=== PATIENT | male | born 1995 | race Caucasian/White ===

== ENCOUNTER 2017-10-06 23:05 | Observation (INO) | payer BC ==
[2017-10-07] MEDS ORDERED: Sodium Chloride 0.9% 10 ML Syringe FLUSH PRN (00:02)
[2017-10-07] MEDS ORDERED: Sodium Chloride 0.9% 1,000 ML IV SCH (00:15)
[2017-10-07] MEDS ORDERED: diphenhydrAMINE 50 MG/ML SDV IVPUSH ONE (00:18)
--- NOTE | 2017-10-07 02:08 | EDM.PDOC ---
ED HPI GENERAL MEDICAL PROBLEM - General Chief Complaint: General Stated Complaint: MUSCLE SPASMS Time Seen by Provider: 10/06/17 23:59 Source of Information: Reports: Patient, Family (Grandmother and reji), RN Notes Reviewed, Other (Records from [facility]) History Limitations: Reports: No Limitations - History of Present Illness INITIAL COMMENTS - FREE TEXT/NARRATIVE: Brought in by his grandmother and with his reji Chief complaint Back and neck muscle spasms History of present illness 22-year-old male came in with onset of spasms in his back and muscle making it difficult for him to walk and move since this evening. He was final day and did eat a normal amount. However he was hospitalized 2 days ago overnight at [facility]. He had consumed excess alcohol and was also uttering suicidal threats. At some point during his admission he received 10 mg of haloperidol probably by mouth, from the records I have. This was given because he was quite agitated while he was there. Discharge the next morning October 06. Urine drug screen done at [facility] was negative for any significant ingestion. He also did cut himself on the left wrist 2 days ago which was new for him. Not suicidal at present. No fever chills No recent illness He is sweating currently Back Pain Score (Numeric/FACES): 6 - Related Data Allergies Allergy/AdvReac Type Severity Reaction Status Date / Time haloperidol [From Haldol] Allergy Severe Other Verified 10/07/17 03:36 Home Meds: Home Meds NK [No Known Home Meds] 09/10/14 [History] Past Medical History - Past Health History Medical/Surgical History: Denies Medical/Surgical History Psychiatric History: Reports: ADD, ADHD - Infectious Disease History Infectious Disease History: Reports: Chicken Pox Social & Family History - Tobacco Use Smoking Status *Q: Never Smoker - Caffeine Use Caffeine Use: Reports: None - Recreational Drug Use Recreational Drug Use: No ED ROS GENERAL - Review of Systems Review Of Systems: See Below Constitutional: Reports: Malaise, Diaphoresis. Denies: Fever, Chills HEENT: Reports: No Symptoms Respiratory: Reports: No Symptoms Cardiovascular: Reports: No Symptoms GI/Abdominal: Reports: No Symptoms : Reports: No Symptoms Musculoskeletal: Reports: Neck Pain, Back Pain, Other (Muscle spasms) Skin: Reports: No Symptoms Neurological: Reports: No Symptoms Psychiatric: Reports: Other (Recent agitation/suicidal threats) Hematologic/Lymphatic: Reports: No Symptoms Immunologic: Reports: No Symptoms ED EXAM, GENERAL - Physical Exam Exam: See Below Exam Limited By: No Limitations General Appearance: Alert, Moderate Distress, Other (Restless anxious, afebrile , tachycardic, tachypneic, unable to get blood pressure because of tremors and restlessness) Eye Exam: Bilateral Eye: EOMI, Normal Inspection Ears: Normal External Exam Nose: Normal Inspection (His pressure is a lot), Normal Mucosa Throat/Mouth: Normal Inspection, Normal Oropharynx Respiratory/Chest: No Respiratory Distress, Lungs Clear, No Accessory Muscle Use (Almost immediately), Chest Non-Tender (Because of elevated) Cardiovascular: Regular Rate, Rhythm, No Murmur, Tachycardia GI/Abdominal: Normal Bowel Sounds, Soft, Non-Tender, No Distention Back Exam: Normal Inspection, Muscle Spasm, Paraspinal Tenderness Extremities: Normal Inspection Neurological: Alert, Oriented, No Motor/Sensory Deficits Psychiatric: Flat Affect Skin Exam: Warm, Dry, Intact, Normal Color, No Rash Course - Vital Signs Last Recorded V/S: Last Vital Signs Temp 36.8 C 10/07/17 03:43 Pulse 72 10/07/17 03:43 Resp 16 10/07/17 03:43 BP 138/73 10/07/17 03:43 Pulse Ox 98 10/07/17 03:43 - Orders/Labs/Meds Orders: Active Orders 24 hr Category Date Time Status Peripheral IV Care [RC] . DIRECTED Care 10/07/17 00:02 Active Consult to Physician [CONS] Urgent Cons 10/07/17 02:02 Ordered Sodium Chloride 0.9% [Normal Saline] 1,000 ml Med 10/07/17 00:15 Active IV ASDIRECTED Sodium Chloride 0.9% [Saline Flush] Med 10/07/17 00:02 Active 10 ml FLUSH ASDIRECTED PRN Peripheral IV Insertion Adult [OM.PC] Routine Oth 10/07/17 00:01 Ordered Medication Orders Acetaminophen (Tylenol) 650 mg PO Q4H PRN PRN Reason: Pain (Mild 1-3)/fever Diphenhydramine HCl (Benadryl) 50 mg IVPUSH Q4H PRN PRN Reason: dystonia Sodium Chloride (Normal Saline) 1,000 mls @ 250 mls/hr IV ASDIRECTED CHRIS Last Admin: 10/07/17 00:38 Dose: 250 mls/hr Ibuprofen (Motrin) 600 mg PO Q6H PRN PRN Reason: Pain/Fever Ondansetron HCl (Zofran Odt) 4 mg PO Q6H PRN PRN Reason: Nausea able to take PO Sodium Chloride (Saline Flush) 10 ml FLUSH ASDIRECTED PRN PRN Reason: Keep Vein Open Last Admin: 10/07/17 00:38 Dose: 10 ml Labs: Laboratory Tests 10/07/17 10/07/17 10/07/17 Range/Units 00:10 00:10 00:10 WBC 11.4 H (4.5-11.0) K/uL RBC 5.53 (4.30-5.90) M/uL Hgb 16.7 H (12.0-15.0) g/dL Hct 47.1 (40.0-54.0) % MCV 85 (80-98) fL MCH 30 (27-31) pg MCHC 36 (32-36) % Plt Count 345 (150-400) K/uL ABG Hemoglobin (13.5-18.0) g/dL ABG Oxyhemoglobin % ABG Carboxyhemoglobin (0.0-1.6) % ABG Methemoglobin % VBG pH (7.350-7.450) VBG pCO2 mm/Hg VBG pO2 mm/Hg VBG HCO3 mmol/L VBG Total CO2 mmol/L VBG O2 Saturation VBG O2 Content %vol VBG Base Excess mm/L O2 Delivery Device Sodium 141 (140-148) mmol/L Potassium 3.8 (3.6-5.2) mmol/L Chloride 102 (100-108) mmol/L Carbon Dioxide 25 (21-32) mmol/L Anion Gap 14.5 H (5.0-14.0) mmol/L BUN 11 (7-18) mg/dL Creatinine 1.2 (0.8-1.3) mg/dL Est Cr Clr Drug Dosing 102.84 mL/min Estimated GFR (MDRD) > 60 (>60) Glucose 113 H (74-106) mg/dL Lactic Acid 3.1 H (0.4-2.0) mmol/L Calcium 9.4 (8.5-10.1) mg/dL Total Bilirubin 0.5 (0.2-1.0) mg/dL AST 53 H (15-37) U/L ALT 73 (12-78) U/L Alkaline Phosphatase 102 (46-116) U/L Creatine Kinase (39-308) U/L Total Protein 8.1 (6.4-8.2) g/dL Albumin 4.3 (3.4-5.0) g/dL Globulin 3.8 H (2.3-3.5) g/dL Albumin/Globulin Ratio 1.1 L (1.2-2.2) Lipase 77 (73-393) U/L Urine Color Urine Appearance Urine pH (4.5-8.0) Ur Specific [place] (1.008-1.030) Urine Protein (NEGATIVE) mg/dL Urine Glucose (UA) (NEGATIVE) mg/dL Urine Ketones (NEGATIVE) mg/dL Urine Occult Blood (NEGATIVE) Urine Nitrite (NEGAITVE) Urine Bilirubin (NEGATIVE) Urine Urobilinogen (NORMAL) mg/dL Ur Leukocyte Esterase (NEGATIVE) Urine RBC (0-5) Urine WBC (0-5) Ur Epithelial Cells Amorphous Sediment Urine Bacteria Urine Mucus Ethyl Alcohol mg/dL 10/07/17 10/07/17 10/07/17 Range/Units 00:10 00:10 00:10 WBC (4.5-11.0) K/uL RBC (4.30-5.90) M/uL Hgb (12.0-15.0) g/dL Hct (40.0-54.0) % MCV (80-98) fL MCH (27-31) pg MCHC (32-36) % Plt Count (150-400) K/uL ABG Hemoglobin 17.2 (13.5-18.0) g/dL ABG Oxyhemoglobin 57.3 % ABG Carboxyhemoglobin 1.1 (0.0-1.6) % ABG Methemoglobin 0.7 % VBG pH 7.386 (7.350-7.450) VBG pCO2 43.8 mm/Hg VBG pO2 31.9 mm/Hg VBG HCO3 25.7 mmol/L VBG Total CO2 22.1 mmol/L VBG O2 Saturation 58.4 VBG O2 Content 13.8 %vol VBG Base Excess 0.8 mm/L O2 Delivery Device Room air Sodium (140-148) mmol/L Potassium (3.6-5.2) mmol/L Chloride (100-108) mmol/L Carbon Dioxide (21-32) mmol/L Anion Gap (5.0-14.0) mmol/L BUN (7-18) mg/dL Creatinine (0.8-1.3) mg/dL Est Cr Clr Drug Dosing mL/min Estimated GFR (MDRD) (>60) Glucose (74-106) mg/dL Lactic Acid (0.4-2.0) mmol/L Calcium (8.5-10.1) mg/dL Total Bilirubin (0.2-1.0) mg/dL AST (15-37) U/L ALT (12-78) U/L Alkaline Phosphatase (46-116) U/L Creatine Kinase 1538 H (39-308) U/L Total Protein (6.4-8.2) g/dL Albumin (3.4-5.0) g/dL Globulin (2.3-3.5) g/dL Albumin/Globulin Ratio (1.2-2.2) Lipase (73-393) U/L Urine Color Urine Appearance Urine pH (4.5-8.0) Ur Specific [place] (1.008-1.030) Urine Protein (NEGATIVE) mg/dL Urine Glucose (UA) (NEGATIVE) mg/dL Urine Ketones (NEGATIVE) mg/dL Urine Occult Blood (NEGATIVE) Urine Nitrite (NEGAITVE) Urine Bilirubin (NEGATIVE) Urine Urobilinogen (NORMAL) mg/dL Ur Leukocyte Esterase (NEGATIVE) Urine RBC (0-5) Urine WBC (0-5) Ur Epithelial Cells Amorphous Sediment Urine Bacteria Urine Mucus Ethyl Alcohol < 3 mg/dL 10/07/17 Range/Units 01:35 WBC (4.5-11.0) K/uL RBC (4.30-5.90) M/uL Hgb (12.0-15.0) g/dL Hct (40.0-54.0) % MCV (80-98) fL MCH (27-31) pg MCHC (32-36) % Plt Count (150-400) K/uL ABG Hemoglobin (13.5-18.0) g/dL ABG Oxyhemoglobin % ABG Carboxyhemoglobin (0.0-1.6) % ABG Methemoglobin % VBG pH (7.350-7.450) VBG pCO2 mm/Hg VBG pO2 mm/Hg VBG HCO3 mmol/L VBG Total CO2 mmol/L VBG O2 Saturation VBG O2 Content %vol VBG Base Excess mm/L O2 Delivery Device Sodium (140-148) mmol/L Potassium (3.6-5.2) mmol/L Chloride (100-108) mmol/L Carbon Dioxide (21-32) mmol/L Anion Gap (5.0-14.0) mmol/L BUN (7-18) mg/dL Creatinine (0.8-1.3) mg/dL Est Cr Clr Drug Dosing mL/min Estimated GFR (MDRD) (>60) Glucose (74-106) mg/dL Lactic Acid (0.4-2.0) mmol/L Calcium (8.5-10.1) mg/dL Total Bilirubin (0.2-1.0) mg/dL AST (15-37) U/L ALT (12-78) U/L Alkaline Phosphatase (46-116) U/L Creatine Kinase (39-308) U/L Total Protein (6.4-8.2) g/dL Albumin (3.4-5.0) g/dL Globulin (2.3-3.5) g/dL Albumin/Globulin Ratio (1.2-2.2) Lipase (73-393) U/L Urine Color Yellow Urine Appearance Clear Urine pH 6.5 (4.5-8.0) Ur Specific [place] 1.015 (1.008-1.030) Urine Protein Negative (NEGATIVE) mg/dL Urine Glucose (UA) Normal (NEGATIVE) mg/dL Urine Ketones Negative (NEGATIVE) mg/dL Urine Occult Blood Negative (NEGATIVE) Urine Nitrite Negative (NEGAITVE) Urine Bilirubin Negative (NEGATIVE) Urine Urobilinogen Normal (NORMAL) mg/dL Ur Leukocyte Esterase Negative (NEGATIVE) Urine RBC 0-5 (0-5) Urine WBC 0-5 (0-5) Ur Epithelial Cells Rare Amorphous Sediment Not seen Urine Bacteria Few Urine Mucus Not seen Ethyl Alcohol mg/dL Meds: Medications Generic Name Dose Route Start Last Admin Trade Name Freq PRN Reason Stop Dose Admin Acetaminophen 650 mg 10/07/17 03:17 Tylenol PO Q4H PRN Pain (Mild 1-3)/fever Diphenhydramine HCl 50 mg 10/07/17 03:17 Benadryl IVPUSH Q4H PRN dystonia Sodium Chloride 1,000 mls @ 250 mls/hr 10/07/17 00:15 10/07/17 00:38 Normal Saline IV 250 mls/hr ASDIRECTED CHRIS Administration Ibuprofen 600 mg 10/07/17 03:17 Motrin PO Q6H PRN Pain/Fever Ondansetron HCl 4 mg 10/07/17 03:17 Zofran Odt PO Q6H PRN Nausea able to take PO Sodium Chloride 10 ml 10/07/17 00:02 10/07/17 00:38 Saline Flush FLUSH 10 ml ASDIRECTED PRN Administration Keep Vein Open Discontinued Medications Generic Name Dose Route Start Last Admin Trade Name Freq PRN Reason Stop Dose Admin Diphenhydramine HCl 50 mg 10/07/17 00:18 10/07/17 00:38 Benadryl IVPUSH 10/07/17 00:19 50 mg ONETIME ONE Administration - Re-Assessments/Exams Free Text/Narrative Re-Assessment/Exam: 10/07/17 02:09 22-year-old male with acute muscle spasms. Recent haloperidol dosing when hospitalized at [facility] Differential diagnosis includes muscle spasm in the back, dystonic reaction from the medication given at [facility], infection, electrolyte abnormalities. Plan Intravenous saline, Benadryl 50 mg for possible dystonic reaction, labs ordered Mild elevation of white count, electrolytes normal, elevated CPK at 1538 Urinalysis normal Elevated lactic acid at 3.1, increased anion gap, remaining electrolytes unremarkable and liver enzymes normal except for mild elevation in AST Current blood pressure 146 systolic In view of his elevated CPK and lactic acid, recommend overnight admission for intravenous fluids and for further treatment of his muscle spasms of the recurrent Departure - Departure Time of Disposition: 02:57 Disposition: Refer to Observation Condition: Good Clinical Impression: Dystonic drug reaction, Elevated CK, Lactic acid acidosis - Discharge Information - My Orders Last 24 Hours: My Active Orders 10/07/17 00:01 Peripheral IV Insertion Adult [OM.PC] Routine 10/07/17 00:02 Peripheral IV Care [RC] . DIRECTED Sodium Chloride 0.9% [Saline Flush] 10 ml FLUSH ASDIRECTED PRN 10/07/17 00:15 Sodium Chloride 0.9% [Normal Saline] 1,000 ml IV ASDIRECTED 10/07/17 02:02 Consult to Physician [CONS] Urgent - Assessment/Plan Last 24 Hours: My Active Orders 10/07/17 00:01 Peripheral IV Insertion Adult [OM.PC] Routine 10/07/17 00:02 Peripheral IV Care [RC] . DIRECTED Sodium Chloride 0.9% [Saline Flush] 10 ml FLUSH ASDIRECTED PRN 10/07/17 00:15 Sodium Chloride 0.9% [Normal Saline] 1,000 ml IV ASDIRECTED 10/07/17 02:02 Consult to Physician [CONS] Urgent
--- NOTE | 2017-10-07 02:49 | PCM.HP ---
H&P History of Present Illness - General Date of Service: 10/07/17 Admit Problem/Dx: Admission Diagnosis/Problem Admission Diagnosis/Problem Dystonia Source of Information: Patient, Family, Provider History Limitations: Reports: No Limitations - History of Present Illness Initial Comments - Free Text/Narative: Jean presents to the ER tonight with diffuse muscle spasms that he was not able to control. They started about 4 hours before ER presentation. The spasms involved essentially all of his muscles but seem to be most pronounced in the back and proximal upper and lower extremities. The symptoms progressed over the course of several hours and included severe sharp pain in all of the affected muscles. Moving against the spasm made the pain worse. He was able to get some relief in a curled up position. He did not take anything to make the pain better at home. He had a normal day today and a normally. He was diaphoretic this evening. It is noted that he received a 10 mg dose of Haldol last night for agitation while he was at the [facility] unit. He does not report shortness of breath, abdominal pain, nausea. Workup in the emergency room revealed apparent dystonia which resolved with Benadryl. He has no elevated lactic acid and CPK and will be admitted for additional hydration and observation. Back Pain Score (Numeric/FACES): 6 - Related Data Allergies/Adverse Reactions: Allergies Allergy/AdvReac Type Severity Reaction Status Date / Time No Known Allergies Allergy Verified 10/06/17 23:54 Home Medications: Home Meds NK [No Known Home Meds] 09/10/14 [History] Past Medical History - Past Health History Medical/Surgical History: Denies Medical/Surgical History Psychiatric History: Reports: ADD, ADHD - Infectious Disease History Infectious Disease History: Reports: Chicken Pox Social & Family History - Family History Other Family History: No family history of dystonic reaction - Tobacco Use Smoking Status *Q: Never Smoker - Caffeine Use Caffeine Use: Reports: None - Recreational Drug Use Recreational Drug Use: No H&P Review of Systems - Review of Systems: Review Of Systems: See Below Free Text/Narrative: A complete 12 point review of systems was obtained. Pertinent positives and negatives are noted in the history of present illness. All other systems were reviewed and were negative except as noted. Exam - Exam Exam: See Below - Vital Signs Vital Signs: Last Vital Signs Temp 36.3 C 10/06/17 23:55 Pulse 138 H 10/06/17 23:55 Resp 28 H 10/06/17 23:55 BP 146/86 H 10/07/17 01:45 Pulse Ox 97 10/06/17 23:55 Weight: 105.7 kg - Exam Quality Assessment: No: Supplemental Oxygen General: Alert, Oriented, Cooperative. No: Mild Distress HEENT: Conjunctiva Clear, Mucosa Moist & [place]. No: Scleral Icterus Neck: Supple, Trachea Midline. No: Lymphadenopathy, Thyromegaly Lungs: Clear to Auscultation, Normal Respiratory Effort Cardiovascular: Regular Rate, Regular Rhythm. No: Systolic Murmur GI/Abdominal Exam: Normal Bowel Sounds, Soft, Non-Tender, No Distention, No Mass Extremities: No Pedal Edema. No: Increased Warmth Peripheral Pulses: 2+: Dorsalis Pedis (L), Dorsalis Pedis (R) Skin: Warm, Dry, Intact Neuro Extensive - Mental Status: Alert, Oriented x3, Nl Response to Commands Neuro Extensive - Motor, Sensory, Reflexes: CN II-XII Intact. No: Dysarthria, Abnormal Motor, Tremor Psychiatric: Alert, Normal Affect - Patient Data Lab Results Last 24 hrs: Laboratory Results - last 24 hr 10/07/17 10/07/17 10/07/17 Range/Units 00:10 00:10 00:10 WBC 11.4 H (4.5-11.0) K/uL RBC 5.53 (4.30-5.90) M/uL Hgb 16.7 H (12.0-15.0) g/dL Hct 47.1 (40.0-54.0) % MCV 85 (80-98) fL MCH 30 (27-31) pg MCHC 36 (32-36) % Plt Count 345 (150-400) K/uL ABG Hemoglobin (13.5-18.0) g/dL ABG Oxyhemoglobin % ABG Carboxyhemoglobin (0.0-1.6) % ABG Methemoglobin % VBG pH (7.350-7.450) VBG pCO2 mm/Hg VBG pO2 mm/Hg VBG HCO3 mmol/L VBG Total CO2 mmol/L VBG O2 Saturation VBG O2 Content %vol VBG Base Excess mm/L O2 Delivery Device Sodium 141 (140-148) mmol/L Potassium 3.8 (3.6-5.2) mmol/L Chloride 102 (100-108) mmol/L Carbon Dioxide 25 (21-32) mmol/L Anion Gap 14.5 H (5.0-14.0) mmol/L BUN 11 (7-18) mg/dL Creatinine 1.2 (0.8-1.3) mg/dL Est Cr Clr Drug Dosing 102.84 mL/min Estimated GFR (MDRD) > 60 (>60) Glucose 113 H (74-106) mg/dL Lactic Acid 3.1 H (0.4-2.0) mmol/L Calcium 9.4 (8.5-10.1) mg/dL Total Bilirubin 0.5 (0.2-1.0) mg/dL AST 53 H (15-37) U/L ALT 73 (12-78) U/L Alkaline Phosphatase 102 (46-116) U/L Creatine Kinase (39-308) U/L Total Protein 8.1 (6.4-8.2) g/dL Albumin 4.3 (3.4-5.0) g/dL Globulin 3.8 H (2.3-3.5) g/dL Albumin/Globulin Ratio 1.1 L (1.2-2.2) Lipase 77 (73-393) U/L Urine Color Urine Appearance Urine pH (4.5-8.0) Ur Specific [place] (1.008-1.030) Urine Protein (NEGATIVE) mg/dL Urine Glucose (UA) (NEGATIVE) mg/dL Urine Ketones (NEGATIVE) mg/dL Urine Occult Blood (NEGATIVE) Urine Nitrite (NEGAITVE) Urine Bilirubin (NEGATIVE) Urine Urobilinogen (NORMAL) mg/dL Ur Leukocyte Esterase (NEGATIVE) Urine RBC (0-5) Urine WBC (0-5) Ur Epithelial Cells Amorphous Sediment Urine Bacteria Urine Mucus Ethyl Alcohol mg/dL 10/07/17 10/07/17 10/07/17 Range/Units 00:10 00:10 00:10 WBC (4.5-11.0) K/uL RBC (4.30-5.90) M/uL Hgb (12.0-15.0) g/dL Hct (40.0-54.0) % MCV (80-98) fL MCH (27-31) pg MCHC (32-36) % Plt Count (150-400) K/uL ABG Hemoglobin 17.2 (13.5-18.0) g/dL ABG Oxyhemoglobin 57.3 % ABG Carboxyhemoglobin 1.1 (0.0-1.6) % ABG Methemoglobin 0.7 % VBG pH 7.386 (7.350-7.450) VBG pCO2 43.8 mm/Hg VBG pO2 31.9 mm/Hg VBG HCO3 25.7 mmol/L VBG Total CO2 22.1 mmol/L VBG O2 Saturation 58.4 VBG O2 Content 13.8 %vol VBG Base Excess 0.8 mm/L O2 Delivery Device Room air Sodium (140-148) mmol/L Potassium (3.6-5.2) mmol/L Chloride (100-108) mmol/L Carbon Dioxide (21-32) mmol/L Anion Gap (5.0-14.0) mmol/L BUN (7-18) mg/dL Creatinine (0.8-1.3) mg/dL Est Cr Clr Drug Dosing mL/min Estimated GFR (MDRD) (>60) Glucose (74-106) mg/dL Lactic Acid (0.4-2.0) mmol/L Calcium (8.5-10.1) mg/dL Total Bilirubin (0.2-1.0) mg/dL AST (15-37) U/L ALT (12-78) U/L Alkaline Phosphatase (46-116) U/L Creatine Kinase 1538 H (39-308) U/L Total Protein (6.4-8.2) g/dL Albumin (3.4-5.0) g/dL Globulin (2.3-3.5) g/dL Albumin/Globulin Ratio (1.2-2.2) Lipase (73-393) U/L Urine Color Urine Appearance Urine pH (4.5-8.0) Ur Specific [place] (1.008-1.030) Urine Protein (NEGATIVE) mg/dL Urine Glucose (UA) (NEGATIVE) mg/dL Urine Ketones (NEGATIVE) mg/dL Urine Occult Blood (NEGATIVE) Urine Nitrite (NEGAITVE) Urine Bilirubin (NEGATIVE) Urine Urobilinogen (NORMAL) mg/dL Ur Leukocyte Esterase (NEGATIVE) Urine RBC (0-5) Urine WBC (0-5) Ur Epithelial Cells Amorphous Sediment Urine Bacteria Urine Mucus Ethyl Alcohol < 3 mg/dL 10/07/17 Range/Units 01:35 WBC (4.5-11.0) K/uL RBC (4.30-5.90) M/uL Hgb (12.0-15.0) g/dL Hct (40.0-54.0) % MCV (80-98) fL MCH (27-31) pg MCHC (32-36) % Plt Count (150-400) K/uL ABG Hemoglobin (13.5-18.0) g/dL ABG Oxyhemoglobin % ABG Carboxyhemoglobin (0.0-1.6) % ABG Methemoglobin % VBG pH (7.350-7.450) VBG pCO2 mm/Hg VBG pO2 mm/Hg VBG HCO3 mmol/L VBG Total CO2 mmol/L VBG O2 Saturation VBG O2 Content %vol VBG Base Excess mm/L O2 Delivery Device Sodium (140-148) mmol/L Potassium (3.6-5.2) mmol/L Chloride (100-108) mmol/L Carbon Dioxide (21-32) mmol/L Anion Gap (5.0-14.0) mmol/L BUN (7-18) mg/dL Creatinine (0.8-1.3) mg/dL Est Cr Clr Drug Dosing mL/min Estimated GFR (MDRD) (>60) Glucose (74-106) mg/dL Lactic Acid (0.4-2.0) mmol/L Calcium (8.5-10.1) mg/dL Total Bilirubin (0.2-1.0) mg/dL AST (15-37) U/L ALT (12-78) U/L Alkaline Phosphatase (46-116) U/L Creatine Kinase (39-308) U/L Total Protein (6.4-8.2) g/dL Albumin (3.4-5.0) g/dL Globulin (2.3-3.5) g/dL Albumin/Globulin Ratio (1.2-2.2) Lipase (73-393) U/L Urine Color Yellow Urine Appearance Clear Urine pH 6.5 (4.5-8.0) Ur Specific [place] 1.015 (1.008-1.030) Urine Protein Negative (NEGATIVE) mg/dL Urine Glucose (UA) Normal (NEGATIVE) mg/dL Urine Ketones Negative (NEGATIVE) mg/dL Urine Occult Blood Negative (NEGATIVE) Urine Nitrite Negative (NEGAITVE) Urine Bilirubin Negative (NEGATIVE) Urine Urobilinogen Normal (NORMAL) mg/dL Ur Leukocyte Esterase Negative (NEGATIVE) Urine RBC 0-5 (0-5) Urine WBC 0-5 (0-5) Ur Epithelial Cells Rare Amorphous Sediment Not seen Urine Bacteria Few Urine Mucus Not seen Ethyl Alcohol mg/dL Result Diagrams: 10/07/17 00:10 10/07/17 00:10 *Q Meaningful Use (ADM) - VTE Risk Assess *Q Each Risk Factor Represents 1 Point: None Total Score 1 Point Risk Factors: 0 Each Risk Factor Represents 2 Points: None Total Score 2 Point Risk Factors: 0 Each Risk Factor Represents 3 Points: None Total Score 3 Point Risk Factors: 0 Each Risk Factor Represents 5 Points: None Total Score 5 Point Risk Factors: 0 Venous Thromboembolism Risk Factor Score *Q: 0 - Problem List (1) Dystonia SNOMED Code(s): 72013148 ICD Code: G24.9 - DYSTONIA, UNSPECIFIED Status: Acute Current Visit: Yes Problem List Initiated/Reviewed/Updated: Yes Orders Last 24hrs: Active Orders 24 hr Category Date Time Status Patient Status Manage Transfer [TRANSFER] Routine ADT 10/07/17 02:42 Active Notify Provider Consults [RC] ASDIRECTED Care 10/07/17 02:02 Active Peripheral IV Care [RC] . DIRECTED Care 10/07/17 00:02 Active Consult to Physician [CONS] Urgent Cons 10/07/17 02:02 Ordered UA W/MICROSCOPIC [URIN] Stat Lab 10/07/17 01:35 Ordered Sodium Chloride 0.9% [Normal Saline] 1,000 ml Med 10/07/17 00:15 Active IV ASDIRECTED Sodium Chloride 0.9% [Saline Flush] Med 10/07/17 00:02 Active 10 ml FLUSH ASDIRECTED PRN Peripheral IV Insertion Adult [OM.PC] Routine Oth 10/07/17 00:01 Ordered Resuscitation Status Routine Resus Stat 10/07/17 02:43 Ordered Medication Orders Sodium Chloride (Normal Saline) 1,000 mls @ 250 mls/hr IV ASDIRECTED CHRIS Last Admin: 10/07/17 00:38 Dose: 250 mls/hr Sodium Chloride (Saline Flush) 10 ml FLUSH ASDIRECTED PRN PRN Reason: Keep Vein Open Last Admin: 10/07/17 00:38 Dose: 10 ml Assessment/Plan Comment:: ASSESSMENT AND PLAN - Dystonic reaction - probably secondary to Haldol administration last night. Associated with tachycardia, diaphoresis as well as elevated lactic acid and CPK. He has improved with administration of diphenhydramine. Tachycardia has resolved with IV fluids and diphenhydramine administration. -IV fluids -Repeat CPK and lactic acid -Diphenhydramine as needed if symptoms return Maintenance issues - - DVT prophylaxis - patient will be ambulatory - GI prophylaxis - not indicated - Nutrition - regular diet - [place] catheter - not indicated CODE STATUS - full code Admission justification - Patient will be referred observation status for hydration, observation and repeat laboratory testing Disposition - I would anticipate discharge to home later in the day Primary care physician - none Talib Padilla M.D.
[2017-10-07] MEDS ORDERED: Ondansetron 4 MG Tab.DIS PO PRN (03:17)
[2017-10-07] MEDS ORDERED: Acetaminophen 325 MG Tab PO PRN (03:17)
[2017-10-07] MEDS ORDERED: Ibuprofen 600 MG Tab PO PRN (03:17)
[2017-10-07] MEDS ORDERED: diphenhydrAMINE 50 MG/ML SDV IVPUSH PRN (03:17)
[2017-10-07 07:08] VITALS: BP 138/71
--- NOTE | 2017-10-07 10:11 | PCM.DCSUM1 ---
Discharge Summary - Hospital Course Brief History: Healthy 22-year-old male who presented with dystonic reaction about 24 hours after a dose of Haldol. He was admitted for hydration and repeat laboratory testing with elevated lactic acid and CPK. Diagnosis: Stroke: No - Discharge Data Discharge Date: 10/07/17 Discharge Disposition: Home, Self-Care 01 Condition: Good - Discharge Diagnosis/Problem(s) (1) Dystonia SNOMED Code(s): 69348539 ICD Code: G24.9 - DYSTONIA, UNSPECIFIED Status: Acute - Patient Summary/Data Consults: Consultations 10/07/17 02:02 Consult to Physician [CONS] Urgent Consulting Provider: Talib Padilla Call Completed to Consulting Physician: Yes Hospital Course: Jean presented to the emergency room last night with progressive muscle spasm involving most predominantly his trunk and proximal extremities. He was tachycardic and diaphoretic on arrival. There was some concern for dystonic reaction versus possibly neuroleptic malignant syndrome. Lactic acid and CPK were both elevated. The patient did receive a dose of diphenhydramine and his muscle spasm essentially resolved at that point. He was admitted to the hospital for hydration and repeat laboratory testing. Several hours after admission we rechecked his CPK and lactic acid. Lactic acid level was normal and CPK was improving but had not normalized. Patient felt well and did not have any sort of muscle spasm or myalgias. He felt well enough for discharge home and I believe he is safe at this time. He was advised to have financial handy just in case the symptoms started again. Haldol has been added to his allergy list. - Patient Instructions Diet: Regular Diet as Tolerated Activity: As Tolerated, Rest and Relax Today Driving: May Drive Today Showering/Bathing: May Shower Notify Provider of: Fever, Increased Pain, Nausea and/or Vomiting Other/Special Instructions: 1. You were in the hospital for observation after a dystonic reaction thought to be caused by Haldol. I have added this medication to your list of allergies and I would strongly recommend that you never take this medication or medications from that family again because of the potential for a severe and maybe even life-threatening reaction. Your symptoms have improved with a dose of diphenhydramine as well as some IV fluids. I would recommend that you drink plenty of fluids today. You should also rest and relax for today but may resume normal activity tomorrow. If you have the sensation that the muscle spasms are returning you could consider taking 50 mg of diphenhydramine (Benadryl). If you have persistent symptoms please return to the emergency room. - Discharge Plan Home Medications: Home Meds NK [No Known Home Meds] 09/10/14 [History] Patient Handouts: Dystonic Reaction - Discharge Summary/Plan Comment DC Time >30 min.: No - Patient Data Vitals - Most Recent: Last Vital Signs Temp 37.1 C 10/07/17 07:05 Pulse 68 10/07/17 07:05 Resp 18 10/07/17 07:05 BP 138/71 10/07/17 07:05 Pulse Ox 97 10/07/17 07:05 Weight - Most Recent: 105.7 kg I&O - Last 24 hours: Intake & Output 10/06/17 10/07/17 10/07/17 22:59 06:59 14:59 Intake Total 440 Balance 440 Lab Results - Last 24 hrs: Laboratory Results - last 24 hr 10/07/17 10/07/17 10/07/17 Range/Units 00:10 00:10 00:10 WBC 11.4 H (4.5-11.0) K/uL RBC 5.53 (4.30-5.90) M/uL Hgb 16.7 H (12.0-15.0) g/dL Hct 47.1 (40.0-54.0) % MCV 85 (80-98) fL MCH 30 (27-31) pg MCHC 36 (32-36) % Plt Count 345 (150-400) K/uL ABG Hemoglobin (13.5-18.0) g/dL ABG Oxyhemoglobin % ABG Carboxyhemoglobin (0.0-1.6) % ABG Methemoglobin % VBG pH (7.350-7.450) VBG pCO2 mm/Hg VBG pO2 mm/Hg VBG HCO3 mmol/L VBG Total CO2 mmol/L VBG O2 Saturation VBG O2 Content %vol VBG Base Excess mm/L O2 Delivery Device Sodium 141 (140-148) mmol/L Potassium 3.8 (3.6-5.2) mmol/L Chloride 102 (100-108) mmol/L Carbon Dioxide 25 (21-32) mmol/L Anion Gap 14.5 H (5.0-14.0) mmol/L BUN 11 (7-18) mg/dL Creatinine 1.2 (0.8-1.3) mg/dL Est Cr Clr Drug Dosing 102.84 mL/min Estimated GFR (MDRD) > 60 (>60) Glucose 113 H (74-106) mg/dL Lactic Acid 3.1 H (0.4-2.0) mmol/L Calcium 9.4 (8.5-10.1) mg/dL Total Bilirubin 0.5 (0.2-1.0) mg/dL AST 53 H (15-37) U/L ALT 73 (12-78) U/L Alkaline Phosphatase 102 (46-116) U/L Creatine Kinase (39-308) U/L Total Protein 8.1 (6.4-8.2) g/dL Albumin 4.3 (3.4-5.0) g/dL Globulin 3.8 H (2.3-3.5) g/dL Albumin/Globulin Ratio 1.1 L (1.2-2.2) Lipase 77 (73-393) U/L Urine Color Urine Appearance Urine pH (4.5-8.0) Ur Specific [place] (1.008-1.030) Urine Protein (NEGATIVE) mg/dL Urine Glucose (UA) (NEGATIVE) mg/dL Urine Ketones (NEGATIVE) mg/dL Urine Occult Blood (NEGATIVE) Urine Nitrite (NEGAITVE) Urine Bilirubin (NEGATIVE) Urine Urobilinogen (NORMAL) mg/dL Ur Leukocyte Esterase (NEGATIVE) Urine RBC (0-5) Urine WBC (0-5) Ur Epithelial Cells Amorphous Sediment Urine Bacteria Urine Mucus Ethyl Alcohol mg/dL 10/07/17 10/07/17 10/07/17 Range/Units 00:10 00:10 00:10 WBC (4.5-11.0) K/uL RBC (4.30-5.90) M/uL Hgb (12.0-15.0) g/dL Hct (40.0-54.0) % MCV (80-98) fL MCH (27-31) pg MCHC (32-36) % Plt Count (150-400) K/uL ABG Hemoglobin 17.2 (13.5-18.0) g/dL ABG Oxyhemoglobin 57.3 % ABG Carboxyhemoglobin 1.1 (0.0-1.6) % ABG Methemoglobin 0.7 % VBG pH 7.386 (7.350-7.450) VBG pCO2 43.8 mm/Hg VBG pO2 31.9 mm/Hg VBG HCO3 25.7 mmol/L VBG Total CO2 22.1 mmol/L VBG O2 Saturation 58.4 VBG O2 Content 13.8 %vol VBG Base Excess 0.8 mm/L O2 Delivery Device Room air Sodium (140-148) mmol/L Potassium (3.6-5.2) mmol/L Chloride (100-108) mmol/L Carbon Dioxide (21-32) mmol/L Anion Gap (5.0-14.0) mmol/L BUN (7-18) mg/dL Creatinine (0.8-1.3) mg/dL Est Cr Clr Drug Dosing mL/min Estimated GFR (MDRD) (>60) Glucose (74-106) mg/dL Lactic Acid (0.4-2.0) mmol/L Calcium (8.5-10.1) mg/dL Total Bilirubin (0.2-1.0) mg/dL AST (15-37) U/L ALT (12-78) U/L Alkaline Phosphatase (46-116) U/L Creatine Kinase 1538 H (39-308) U/L Total Protein (6.4-8.2) g/dL Albumin (3.4-5.0) g/dL Globulin (2.3-3.5) g/dL Albumin/Globulin Ratio (1.2-2.2) Lipase (73-393) U/L Urine Color Urine Appearance Urine pH (4.5-8.0) Ur Specific [place] (1.008-1.030) Urine Protein (NEGATIVE) mg/dL Urine Glucose (UA) (NEGATIVE) mg/dL Urine Ketones (NEGATIVE) mg/dL Urine Occult Blood (NEGATIVE) Urine Nitrite (NEGAITVE) Urine Bilirubin (NEGATIVE) Urine Urobilinogen (NORMAL) mg/dL Ur Leukocyte Esterase (NEGATIVE) Urine RBC (0-5) Urine WBC (0-5) Ur Epithelial Cells Amorphous Sediment Urine Bacteria Urine Mucus Ethyl Alcohol < 3 mg/dL 10/07/17 10/07/17 10/07/17 Range/Units 01:35 06:45 06:45 WBC (4.5-11.0) K/uL RBC (4.30-5.90) M/uL Hgb (12.0-15.0) g/dL Hct (40.0-54.0) % MCV (80-98) fL MCH (27-31) pg MCHC (32-36) % Plt Count (150-400) K/uL ABG Hemoglobin (13.5-18.0) g/dL ABG Oxyhemoglobin % ABG Carboxyhemoglobin (0.0-1.6) % ABG Methemoglobin % VBG pH (7.350-7.450) VBG pCO2 mm/Hg VBG pO2 mm/Hg VBG HCO3 mmol/L VBG Total CO2 mmol/L VBG O2 Saturation VBG O2 Content %vol VBG Base Excess mm/L O2 Delivery Device Sodium (140-148) mmol/L Potassium (3.6-5.2) mmol/L Chloride (100-108) mmol/L Carbon Dioxide (21-32) mmol/L Anion Gap (5.0-14.0) mmol/L BUN (7-18) mg/dL Creatinine (0.8-1.3) mg/dL Est Cr Clr Drug Dosing mL/min Estimated GFR (MDRD) (>60) Glucose (74-106) mg/dL Lactic Acid 1.0 (0.4-2.0) mmol/L Calcium (8.5-10.1) mg/dL Total Bilirubin (0.2-1.0) mg/dL AST (15-37) U/L ALT (12-78) U/L Alkaline Phosphatase (46-116) U/L Creatine Kinase 1445 H (39-308) U/L Total Protein (6.4-8.2) g/dL Albumin (3.4-5.0) g/dL Globulin (2.3-3.5) g/dL Albumin/Globulin Ratio (1.2-2.2) Lipase (73-393) U/L Urine Color Yellow Urine Appearance Clear Urine pH 6.5 (4.5-8.0) Ur Specific [place] 1.015 (1.008-1.030) Urine Protein Negative (NEGATIVE) mg/dL Urine Glucose (UA) Normal (NEGATIVE) mg/dL Urine Ketones Negative (NEGATIVE) mg/dL Urine Occult Blood Negative (NEGATIVE) Urine Nitrite Negative (NEGAITVE) Urine Bilirubin Negative (NEGATIVE) Urine Urobilinogen Normal (NORMAL) mg/dL Ur Leukocyte Esterase Negative (NEGATIVE) Urine RBC 0-5 (0-5) Urine WBC 0-5 (0-5) Ur Epithelial Cells Rare Amorphous Sediment Not seen Urine Bacteria Few Urine Mucus Not seen Ethyl Alcohol mg/dL Med Orders - Current: Current Medications Acetaminophen (Tylenol) 650 mg PO Q4H PRN PRN Reason: Pain (Mild 1-3)/fever Diphenhydramine HCl (Benadryl) 50 mg IVPUSH Q4H PRN PRN Reason: dystonia Sodium Chloride (Normal Saline) 1,000 mls @ 250 mls/hr IV ASDIRECTED CHRIS Last Admin: 10/07/17 00:38 Dose: 250 mls/hr Ibuprofen (Motrin) 600 mg PO Q6H PRN PRN Reason: Pain/Fever Ondansetron HCl (Zofran Odt) 4 mg PO Q6H PRN PRN Reason: Nausea able to take PO Sodium Chloride (Saline Flush) 10 ml FLUSH ASDIRECTED PRN PRN Reason: Keep Vein Open Last Admin: 10/07/17 00:38 Dose: 10 ml Discontinued Medications Diphenhydramine HCl (Benadryl) 50 mg IVPUSH ONETIME ONE Stop: 10/07/17 00:19 Last Admin: 10/07/17 00:38 Dose: 50 mg - Exam Quality Assessment: Denies: Supplemental Oxygen General: Reports: Alert, Oriented, Cooperative, No Acute Distress Neck: Reports: Supple Lungs: Reports: Normal Respiratory Effort GI/Abdominal Exam: No Distention Extremities: No Pedal Edema Psy/Mental Status: Reports: Alert, Normal Affect
== END 2017-10-07 10:45 | disposition home or self-care (01) ==
LOC: JP.ED 23:05 → JP.MS 10-07 02:42
PROVIDERS: ADMIT Internal Medicine; ATTEND Internal Medicine
DX: G24.9 Dystonia, unspecified (principal); F90.9 Attention-deficit hyperactivity disorder, unspecified type; Z88.8 Allergy status to other drugs, medicaments and biological substances
CPT/HCPCS: 36415; 80053; 81001; 82550; 82803; 83605; 83690; 85027; 99284; G0480; J1200; J7030; J7050

== ENCOUNTER 2022-01-11 00:43 | Emergency (ER) | payer OTHER ==
[2022-02-06 09:01] LABS: ESTIMATED GFR 86 mL/min (>60)
== END 2022-01-11 03:18 | disposition home or self-care (01) ==
LOC: JP.ED 00:43
DX: S90.812A Abrasion, left foot, initial encounter (principal); S00.81XA Abrasion of other part of head, initial encounter; S50.311A Abrasion of right elbow, initial encounter; F10.129 Alcohol abuse with intoxication, unspecified; V49.40XA Driver injured in collision with unspecified motor vehicles in traffic accident, initial encounter
CPT/HCPCS: 36415; 70450; 72125; 80053; 80307; 85027; 99284